=== PATIENT | male | born 1940 | race Caucasian/White ===

== ENCOUNTER 2020-06-24 09:26 | Inpatient (IN) | payer OTHER, BC ==
[2020-06-24] MEDS ORDERED: LACTATED RINGERS SOLUTION 1000 ML INFUS.BAG IV ONE (11:46)
--- NOTE | 2020-06-24 11:46 | PDOC ---
History of Present Illness - General Chief Complaint: Weakness Stated Complaint: GENERALIZED WEAKNESS Time Seen by Provider: 06/24/20 09:38 History Source: Patient - History of Present Illness Initial Comments: 06/24/20 11:41 80M w/no PMH p/w worsening bilateral LE weakness, L > R. 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 He reports a fall from standing yesterday after feeling that his legs "gave out" from under him. He denies any LOC, head, or neck pain. He reports that the home has stairs, and he has had slow, progressive difficulty navigating the staircase which acutely worsened yesterday. He denies any numbness or tingling in the lower extremities. NKDA. Past History - Medical History Allergies/Adverse Reactions: Allergies Allergy/AdvReac Type Severity Reaction Status Date / Time No Known Allergies Allergy Verified 06/24/20 09:34 COPD: No - Psycho-Social/Smoking History Smoking History: Never smoked Have you smoked in the past 12 months: No - Substance Abuse Hx (Audit-C & DAST Scrn) How often the patient has a drink containing alcohol: Never Score: In Men: 4 or > Positive; In Women: 3 or > Positive: 0 Screen Result (Pos requires Nsg. Audit-10AR): Negative In the last yr the pt used illegal drug/Rx for NonMed reason: No Score: Yes response is considered Positive: 0 Screen Result (Positive result requires Nsg. DAST-10): Negative Review of Systems - Review of Systems Able to Perform ROS?: Yes Comments:: 06/24/20 11:43 GENERAL/CONSTITUTIONAL: Weakness. No fever or chills. HEAD, EYES, EARS, NOSE AND THROAT: No change in vision. No ear pain or discharge. No sore throat. CARDIOVASCULAR: No chest pain or shortness of breath RESPIRATORY: No cough, wheezing, or hemoptysis. GASTROINTESTINAL: No nausea, vomiting, diarrhea or constipation. GENITOURINARY: No dysuria, frequency, or change in urination. MUSCULOSKELETAL: No joint or muscle swelling or pain. No neck or back pain. SKIN: No rash NEUROLOGIC: No headache, vertigo, loss of consciousness, or change in strength/sensation. ENDOCRINE: No increased thirst. No abnormal weight change HEMATOLOGIC/LYMPHATIC: No anemia, easy bleeding, or history of blood clots. ALLERGIC/IMMUNOLOGIC: No hives or skin allergy. *Physical Exam - Vital Signs Last Vital Signs Temp Pulse Resp BP Pulse Ox 97.5 F L 82 18 134/72 98 06/24/20 09:34 06/24/20 09:34 06/24/20 09:34 06/24/20 09:34 06/24/20 09:34 - Physical Exam 06/24/20 11:44 GENERAL: Awake, alert, and fully oriented, in no acute distress HEAD: No signs of trauma, normocephalic, atraumatic EYES: PERRLA, EOMI, sclera anicteric, conjunctiva clear ENT: Auricles normal inspection, hearing grossly normal, nares patent, oropharynx clear without exudates. Moist mucosa NECK: Normal ROM, supple, no lymphadenopathy, JVD, or masses LUNGS: No distress, speaks full sentences, clear to auscultation bilaterally HEART: Regular rate and rhythm, normal S1 and S2, no murmurs, rubs or gallops, peripheral pulses normal and equal bilaterally. ABDOMEN: Soft, nontender, normoactive bowel sounds. No guarding, no rebound. No masses EXTREMITIES : Normal inspection, Normal range of motion, no edema. No clubbing or cyanosis NEUROLOGICAL: Normal sensation to light touch of bilateral lower extremities. 5/5 strength in bilateral lower extremities. Cranial nerves II through XII grossly intact. Normal speech, no focal sensorimotor deficits SKIN: Warm, Dry, normal turgor, no rashes or lesions noted Medical Decision Making - Medical Decision Making 06/24/20 11:45 80M w/no PMH p/w acute worsening of progressive LE weakness, L > R, with fall from standing yesterday. He denies any pain at this time, no focal findings on exam. Plan: CBC CMP Mag Phos Cardiac Profile EKG CXR CT Head Dispo: Pending labs, imaging
[2020-06-24 12:07] LABS: HEMATOCRIT 45.9 % (35.4-49); HEMOGLOBIN 15.8 GM/dL (11.7-16.9); LYMPH % 21.8 % (8-40); MCH 31.2 pg (25.7-33.7); MCHC 34.4 g/dl (32.0-35.9); MEAN CELL VOLUME 90.8 fl (80-96); MEAN PLT VOLUME 9.8 fl (7.5-11.1); MONO % 10.8 % (3.8-10.2); NEUT % 65.4 % (42.8-82.8); PLATELET COUNT 242 K/MM3 (134-434); RBC 5.05 M/mm3 (4.00-5.60); RDW 13.6 % (11.9-15.9); WHITE BLOOD COUNT 7.6 K/mm3 (4.0-10.0)
[2020-06-24 12:33] LABS: ALBUMIN 3.6 g/dl (3.4-5.0); ALK PHOS 90 U/L (45-117); ANION GAP 8 MMOL/L (8-16); BILIRUBIN,TOTAL 0.6 mg/dL (0.2-1); BLOOD UREA NITROGEN 17.6 mg/dL (7-18); CALCIUM 9.2 mg/dL (8.5-10.1); CHLORIDE 103 mmol/L (98-107); CO2 26 mmol/L (21-32); CREATININE 0.8 mg/dL (0.55-1.3); GLUCOSE,RANDOM 286 mg/dL (74-106); POTASSIUM 4.3 mmol/L (3.5-5.1); SGOT/AST 15 U/L (15-37); SGPT/ALT 19 U/L (13-61); SODIUM 137 mmol/L (136-145); TOT PROT 6.9 g/dl (6.4-8.2)
[2020-06-24 12:40] LABS: URINE APPEARANCE CLEAR; URINE BILIRUBIN NEGATIVE (NEGATIVE); URINE COLOR YELLOW; URINE GLUCOSE (UA) 3+ (NEGATIVE); URINE KETONE 1+ (NEGATIVE); URINE LEUK ESTERASE NEGATIVE (NEGATIVE); URINE NITRITE NEGATIVE (NEGATIVE); URINE PROTEIN NEGATIVE (NEGATIVE)
--- NOTE | 2020-06-24 13:49 | PDOC ---
Documentation entered by Timmy Baca SCRIBE, acting as scribe for Mayank Galloway MD. Mayank Galloway MD: This documentation has been prepared by the gerriibe, Timmy Baca SCRIBE, under my direction and personally reviewed by me in its entirety. I confirm that the documentation accurately reflects all work, treatment, procedures, and medical decision making performed by me. Attending Attestation - Resident Resident Name: ReyesEverett - ED Attending Attestation I have performed the following: I have examined & evaluated the patient, The case was reviewed & discussed with the resident, I agree w/resident's findings & plan, Exceptions are as noted - HPI HPI: 06/24/20 12:07 The patient is an 80 year old male with no significant past medical history who presents to the emergency department for evaluation of weakness that began a few weeks ago and has been progressively worsening. The patient reports worsening weakness of is L leg. States that several weeks ago he started having difficulty ambulating with his left leg not cooperating. He endorses falling yesterday after his legs gave out due to increased difficulty walking. He denies hitting his head, or having any LOC from the fall yesterday. today he could not get down the stairs as he was afraid he is not fall down. He denies any other focal neurologic complaints including vision changes, focal numbness, tingling, upper extremity weakness, vertigo. pt also endorses having needing to use a cane the past 3 weeks as things have been getting so bad. Denies LOC, head/neck trauma, or paresthesias. The patient denies chest/abdomi nal/back pain, cough, and shortness of breath. Denies fever, chills, nausea, vomiting, and/or any GI symptoms. Denies any symptoms. Denies any other symptoms. Allergies: NKA Surgical Hx: None reported - Physicial Exam PE: 06/24/20 11:30 GENERAL: The patient is awake, alert, and fully oriented, Nontoxic - in no acute distress. HEAD: Normocephalic, atraumatic. EYES: extraocular movements intact, sclera anicteric, conjunctiva clear. ENT: Normal voice, Moist mucous membranes. NECK: Normal range of motion, supple without lymphadenopathy, JVD, or masses. LUNGS: Breath sounds equal, clear to auscultation bilaterally. No wheezes, no crackles, no rales. HEART: Regular rate and rhythm, normal S1 and S2 without murmur, rub or gallop. ABDOMEN: Soft, nontender, normoactive bowel sounds. No guarding, no rebound. No masses. EXTREMITIES: Normal range of motion, no edema. No clubbing or cyanosis. No cords, erythema, or tenderness. NEUROLOGICAL: No facial asymmetry, Normal speech, 5/5 strength in b/l UE and RLE, 4/5 weakness of LLE, sensation intact and symmetric in upper/lower extremities BACK: No focal bony tenderness/eruythema/induration PSYCH: Normal mood, normal affect. SKIN: Warm, Dry, normal turgor, no rashes or lesions noted. - Medical Decision Making 06/24/20 13:43 LLE weakness over past several weeks ?possible cva no back pain/trauma to suggest cauda equina labs reviewed ct pending 06/24/20 17:43 ct head neagtive pt unable to ambulate stably unclear reason for his L leg weakness, will admit for further management Discharge - Discharge Information Problems reviewed: Yes Clinical Impression/Diagnosis: Left leg weakness, Gait instability Condition: Stable Disposition: VNS/HOME HEALTH CARE - Follow up/Referral - Patient Discharge Instructions - Post Discharge Activity
--- NOTE | 2020-06-24 14:03 | EKG ---
Test Reason : Blood Pressure : / mmHG Vent. Rate : 079 BPM Atrial Rate : 079 BPM P-R Int : 234 ms QRS Dur : 076 ms QT Int : 392 ms P-R-T Axes : -16 009 056 degrees QTc Int : 449 ms SINUS RHYTHM WITH 1ST DEGREE A-V BLOCK LOW VOLTAGE QRS INFERIOR INFARCT , AGE UNDETERMINED ABNORMAL ECG NO PREVIOUS ECGS AVAILABLE Confirmed by JUSTYN COOPER MD ([id number]) on 06/24/2020 2:03:29 PM Referred By: Confirmed By:JUSTYN COOPER MD
[2020-06-24 15:58] LABS: MAGNESIUM 2.1 mg/dL (1.8-2.4); PHOSPHOROUS 3.8 mg/dL (2.5-4.9)
--- NOTE | 2020-06-24 17:45 | HP ---
CHIEF COMPLAINT: Bilateral LE weakness, L>R PCP: HISTORY OF PRESENT ILLNESS: Pt is a 80 year old male with no stated PMHx presenting with bilateral LE weakness (L>R) for the past 6 months that has progressively worsened. Over the last 1-2 days, the weakness has increased, and he has had trouble ambulating. He states that he has had to use his R leg more than his L leg due to the increased weakness on the L side. Pt states when he takes turns he loses his balance due to the weakness in his L leg. Pt states he has had several falls during this time as well, but denies LOC, head or neck trauma. Pt states the weakness is mainly in his L mid calf, and this is where it has been since this started 6 months ago. Pt states weakness has not traveled, and has consistently been located in this location. Pt denies any bladder/bowel incontinence. Pt denies any vision changes, dizziness, palpitation. Pt states there is no associated numbness, tingling or pain. Pt also states he has had reddening of his R eye that began 3 days ago. ER course was notable for: (1) EKG NSR, no ischemic changes (2) Head CT negative for acute, chronic changes noted (3) 1L LR in ED PAST MEDICAL HISTORY: Denies PAST SURGICAL HISTORY: Denies Social History: Smoking: Quit 50 years ago Alcohol: Occasionally Drugs: Denies Allergies No Known Allergies Allergy (Verified 06/24/20 09:34) HOME MEDICATIONS: REVIEW OF SYSTEMS CONSTITUTIONAL: Absent: fever, chills, diaphoresis, generalized weakness, malaise, loss of appetite, weight change HEENT: Absent: rhinorrhea, nasal congestion, throat pain, throat swelling, difficulty swallowing, mouth swelling, ear pain, eye pain, visual changes CARDIOVASCULAR: Absent: chest pain, syncope, palpitations, irregular heart rate, lightheadedness, peripheral edema RESPIRATORY: Absent: cough, shortness of breath, dyspnea with exertion, orthopnea, wheezing, stridor, hemoptysis GASTROINTESTINAL: Absent: abdominal pain, abdominal distension, nausea, vomiting, diarrhea, constipation, melena, hematochezia GENITOURINARY: Absent: dysuria, frequency, urgency, hesitancy, hematuria, flank pain, genital pain MUSCULOSKELETAL: Bilateral LE weakness, L>R without any pain, radicular pain, tingling, numbness Absent: myalgia, arthralgia, joint swelling, back pain, neck pain SKIN: Absent: rash, itching, pallor HEMATOLOGIC/IMMUNOLOGIC: Absent: easy bleeding, easy bruising, lymphadenopathy, frequent infections ENDOCRINE: Absent: unexplained weight gain, unexplained weight loss, heat intolerance, cold intolerance NEUROLOGIC: Absent: headache, focal weakness or paresthesias, dizziness, unsteady gait, seizure, mental status changes, bladder or bowel incontinence PSYCHIATRIC: Absent: anxiety, depression, suicidal or homicidal ideation, hallucinations. PHYSICAL EXAMINATION Vital Signs - 24 hr 06/24/20 06/24/20 06/24/20 09:34 11:11 13:50 Temperature 97.5 F L 97.9 F Pulse Rate 82 80 Pulse Rate [ 81 Left Radial] Respiratory 18 18 Rate Blood Pressure 134/72 Blood Pressure 146/79 [Right Arm] O2 Sat by Pulse 98 97 98 Oximetry (%) GENERAL: Awake, alert, and fully oriented, in no acute distress. HEAD: Normal with no signs of trauma. EYES: Pupils equal, round and reactive to light, extraocular movements intact, sclera anicteric, conjunctiva clear. No lid lag. EARS, NOSE, THROAT: Ears normal, nares patent, oropharynx clear without exudates. Moist mucous membranes. NECK: Normal range of motion, supple without lymphadenopathy, JVD, or masses. LUNGS: Breath sounds equal, clear to auscultation bilaterally. No wheezes, and no crackles. No accessory muscle use. HEART: Regular rate and rhythm, normal S1 and S2 without murmur, rub or gallop. ABDOMEN: Soft, nontender, not distended, normoactive bowel sounds, no guarding, no rebound, no masses. No hepatomegaly or splenomegaly. MUSCULOSKELETAL: Normal range of motion at all joints. No bony deformities or tenderness. No CVA tenderness. 5/5 motor strength in RLE, 4/5 motor strength in LLE UPPER EXTREMITIES: 2+ pulses, warm, well-perfused. No cyanosis. No clubbing. No peripheral edema. LOWER EXTREMITIES: 2+ pulses, warm, well-perfused. No calf tenderness. No peripheral edema. NEUROLOGICAL: Cranial nerves II-XII intact. Normal speech. Normal gait. PSYCHIATRIC: Cooperative. Good eye contact. Appropriate mood and affect. SKIN: Warm, dry, normal turgor, no rashes or lesions noted, normal capillary refill. Laboratory Results - last 24 hr 06/24/20 06/24/20 06/24/20 11:00 11:00 11:50 WBC 7.6 RBC 5.05 Hgb 15.8 Hct 45.9 MCV 90.8 MCH 31.2 MCHC 34.4 RDW 13.6 Plt Count 242 MPV 9.8 Absolute Neuts (auto) 5.0 Neutrophils % 65.4 Lymphocytes % 21.8 Monocytes % 10.8 H Eosinophils % 1.0 Basophils % 1.0 Nucleated RBC % 0 Sodium 137 Potassium 4.3 Chloride 103 Carbon Dioxide 26 Anion Gap 8 BUN 17.6 Creatinine 0.8 Est GFR (CKD-EPI)AfAm 97.10 Est GFR (CKD-EPI)NonAf 83.78 Random Glucose 286 H Calcium 9.2 Phosphorus 3.8 Magnesium 2.1 Total Bilirubin 0.6 AST 15 ALT 19 Alkaline Phosphatase 90 Creatine Kinase 67 Troponin I < 0.02 Total Protein 6.9 Albumin 3.6 Vitamin B12 350 Urine Color Yellow Urine Appearance Clear Urine pH 6.0 Ur Specific [place] 1.035 Urine Protein Negative Urine Glucose (UA) 3+ H Urine Ketones 1+ H Urine Blood Negative Urine Nitrite Negative Urine Bilirubin Negative Urine Urobilinogen 1.0 Ur Leukocyte Esterase Negative ASSESSMENT/PLAN: Pt is a 80 year old male with no stated PMHx presenting with bilateral LE weakness, L>R. Head CT (chronic changes noted only), EKG and labs unremarkable in ED. #Lower extremity weakness, L>R -progressive, increased in last few days without migration -no LOC, palpitations, drinks adequate amounts of water and at baseline creatinine -fall precautions -physical therapy requested #Hyperglycemia -Glucose 286 -no hx of DM, A1c ordered #R eye conjunctivitis -polymyxin/TMP in R eye -monitor improvement FEN NS 100cc/hr Monitor electrolytes Regular diet PPx Lovenox 40 mg SQ Dispo Admit to med surg. Family Medical History Family History: Denies Visit type - Medication Review Med list reviewed for High Risk Meds patients 65 and older: Yes - Emergency Visit Emergency Visit: Yes ED Registration Date: 06/24/20 Care time: The patient presented to the Emergency Department on the above date and was hospitalized for further evaluation of their emergent condition. - New Patient This patient is new to me today: No - Critical Care Critical Care patient: No ATTENDING PHYSICIAN STATEMENT I saw and evaluated the patient. I reviewed the resident's note and discussed the case with the resident. I agree with the resident's findings and plan as documented. SUBJECTIVE: OBJECTIVE: ASSESSMENT AND PLAN:
[2020-06-24] MEDS ORDERED: SODIUM CHLORIDE 1,000 ML IV SCH (18:00)
[2020-06-24] MEDS: POLYMYXIN B SULFATE/TMP 10 ML OPHTHALMIC SOLUTION OD SCH ×2 (19:56→22:07)
--- NOTE | 2020-06-25 00:33 | PN ---
Teaching Attending Note Name of Resident: Travon Chun ATTENDING PHYSICIAN STATEMENT I saw and evaluated the patient. I reviewed the resident's note and discussed the case with the resident. I agree with the resident's findings and plan as documented. SUBJECTIVE: Patient seen and examined at bedside, c/o L leg weakness over the past week, denies trauma/falls. VSS. OBJECTIVE: GA comfortable, AAox3 HEENT nC/aT, dry MM, neck supple Chest CTAB, no crackles CVS s1, S2+, RRR Abd Soft, NT, ND, BS+ Ext no LE edema, no calf tenderness, 4/5 strength LLE, sensation intact and equal LE b/l Vital Signs (72 hours) 06/24/20 06/24/20 06/24/20 09:34 11:11 13:50 Temperature 97.5 F L 98.2 F 97.9 F Pulse Rate 82 80 Pulse Rate [ 97 H 81 Left Radial] Respiratory 18 23 H 18 Rate Blood Pressure 134/72 Blood Pressure 165/91 146/79 [Right Arm] O2 Sat by Pulse 98 98 98 Oximetry (%) 06/24/20 23:48 Temperature Pulse Rate Pulse Rate [ 75 Left Radial] Respiratory 18 Rate Blood Pressure Blood Pressure 149/69 [Right Arm] O2 Sat by Pulse 97 Oximetry (%) Laboratory Results - last 24 hr 06/24/20 06/24/20 06/24/20 11:00 11:00 11:50 WBC 7.6 RBC 5.05 Hgb 15.8 Hct 45.9 MCV 90.8 MCH 31.2 MCHC 34.4 RDW 13.6 Plt Count 242 MPV 9.8 Absolute Neuts (auto) 5.0 Neutrophils % 65.4 Lymphocytes % 21.8 Monocytes % 10.8 H Eosinophils % 1.0 Basophils % 1.0 Nucleated RBC % 0 Sodium 137 Potassium 4.3 Chloride 103 Carbon Dioxide 26 Anion Gap 8 BUN 17.6 Creatinine 0.8 Est GFR (CKD-EPI)AfAm 97.10 Est GFR (CKD-EPI)NonAf 83.78 Random Glucose 286 H Calcium 9.2 Phosphorus 3.8 Magnesium 2.1 Total Bilirubin 0.6 AST 15 ALT 19 Alkaline Phosphatase 90 Creatine Kinase 67 Troponin I < 0.02 Total Protein 6.9 Albumin 3.6 Vitamin B12 350 Urine Color Yellow Urine Appearance Clear Urine pH 6.0 Ur Specific [place] 1.035 Urine Protein Negative Urine Glucose (UA) 3+ H Urine Ketones 1+ H Urine Blood Negative Urine Nitrite Negative Urine Bilirubin Negative Urine Urobilinogen 1.0 Ur Leukocyte Esterase Negative Home Medications Medication Instructions Recorded Unobtainable 06/24/20 Current Medications Generic Name Dose Route Start Last Admin Trade Name Keonq PRN Reason Stop Dose Admin Enoxaparin Sodium 40 mg 06/25/20 10:00 Lovenox - SQ DAILY TONY Sodium Chloride 1,000 mls @ 100 mls/hr 06/24/20 18:00 06/24/20 19:07 Normal Saline - IV 06/25/20 03:59 100 mls/hr ASDIR TONY Administration Polymyxin/Trimethoprim Sulfate 1 drop 06/24/20 18:00 06/24/20 22:07 Polytrim Opthalmic Solution - OD 1 drop [id number] TONY Administration ASSESSMENT AND PLAN: 80 M No reported PMHx Progressive LLE weakness Plan: Obtain L spine CT to r/o mass occupying lesion May benefit from EMG study from Neurology Send TSH/A1c/lipid panel/B12/RPR/Aldolase B/CPK levels PT evaluation DVT ppx: Lovenox SC
[2020-06-25] MEDS: POLYMYXIN B SULFATE/TMP 10 ML OPHTHALMIC SOLUTION OD SCH ×5 (05:53→22:33)
[2020-06-25 07:16] LABS: BASO % 1.2 % (0-2.0); EOS % 1.8 % (0-4.5); HEMATOCRIT 42.2 % (35.4-49); HEMOGLOBIN 14.5 GM/dL (11.7-16.9); LYMPH % 23.5 % (8-40); MCH 30.9 pg (25.7-33.7); MCHC 34.5 g/dl (32.0-35.9); MEAN CELL VOLUME 89.6 fl (80-96); MEAN PLT VOLUME 8.6 fl (7.5-11.1); MONO % 9.3 % (3.8-10.2); NEUT % 64.2 % (42.8-82.8); PLATELET COUNT 228 K/MM3 (134-434); RDW 13.4 % (11.9-15.9); WHITE BLOOD COUNT 7.6 K/mm3 (4.0-10.0)
[2020-06-25 07:50] LABS: ALBUMIN 3.2 g/dl (3.4-5.0); BILIRUBIN,TOTAL 1.1 mg/dL (0.2-1); BLOOD UREA NITROGEN 12.3 mg/dL (7-18); CREATININE 0.8 mg/dL (0.55-1.3); MAGNESIUM 1.9 mg/dL (1.8-2.4); POTASSIUM 3.8 mmol/L (3.5-5.1); TOT PROT 6.1 g/dl (6.4-8.2)
[2020-06-25] MEDS: CYANOCOBALAMIN 1,000 MCG TABLET (FP) PO SCH (10:33)
[2020-06-25] MEDS: ENOXAPARIN NA (PORCINE) 40 MG/0.4 ML DISP.SYRIN SQ SCH (10:34)
--- NOTE | 2020-06-25 13:21 | PN ---
Teaching Attending Note Name of Resident: Travon Chun ATTENDING PHYSICIAN STATEMENT I saw and evaluated the patient. I reviewed the resident's note and discussed the case with the resident. I agree with the resident's findings and plan as documented. SUBJECTIVE: Feels well except for progressive LLE weakness and recent falls. No headache/visual disturbance/lightheadedness/limb numbness. No back pain. OBJECTIVE: Afebrile, hemodynamically stable. Last Vital Signs Temp Pulse Resp BP Pulse Ox 98.1 F 75 18 144/81 95 06/25/20 10:06/25/20 10:06/25/20 10:06/25/20 10:06/25/20 10:00 HEENT - Atraumatic, Normocephalic. Heart - S1, S2, RRR Lungs - clear to auscultation Abdomen - Soft, non-tender. Bowel Sounds normal. Extrmities - no edema, no calf tenderness. Neuro - AAO x 3. Power 4/5 LLE (proximal muscle weakness) Laboratory Results - last 24 hr 06/24/20 06/25/20 06/25/20 11:00 06:40 06:40 WBC 7.6 RBC 4.70 Hgb 14.5 Hct 42.2 MCV 89.6 MCH 30.9 MCHC 34.5 RDW 13.4 Plt Count 228 MPV 8.6 D Absolute Neuts (auto) 4.9 Neutrophils % 64.2 Lymphocytes % 23.5 Monocytes % 9.3 Eosinophils % 1.8 Basophils % 1.2 Nucleated RBC % 0 Sodium 137 137 Potassium 4.3 3.8 Chloride 103 104 Carbon Dioxide 26 26 Anion Gap 8 7 L BUN 17.6 12.3 Creatinine 0.8 0.8 Est GFR (CKD-EPI)AfAm 97.10 97.10 Est GFR (CKD-EPI)NonAf 83.78 83.78 Random Glucose 286 H 245 H Hemoglobin A1c % Calcium 9.2 9.0 Phosphorus 3.8 3.0 Magnesium 2.1 1.9 Total Bilirubin 0.6 1.1 H AST 15 11 L ALT 19 15 Alkaline Phosphatase 90 70 Creatine Kinase 67 72 Troponin I < 0.02 Total Protein 6.9 6.1 L Albumin 3.6 3.2 L Vitamin B12 350 TSH 2.53 Syphilis Serology 06/25/20 06/25/20 06:40 06:40 WBC RBC Hgb Hct MCV MCH MCHC RDW Plt Count MPV Absolute Neuts (auto) Neutrophils % Lymphocytes % Monocytes % Eosinophils % Basophils % Nucleated RBC % Sodium Potassium Chloride Carbon Dioxide Anion Gap BUN Creatinine Est GFR (CKD-EPI)AfAm Est GFR (CKD-EPI)NonAf Random Glucose Hemoglobin A1c % 10.2 H Calcium Phosphorus Magnesium Total Bilirubin AST ALT Alkaline Phosphatase Creatine Kinase Troponin I Total Protein Albumin Vitamin B12 TSH Syphilis Serology Non-reactive Current Medications Generic Name Dose Route Start Last Admin Trade Name Fan PRN Reason Stop Dose Admin Cyanocobalamin 1,000 mcg 06/25/20 10:00 06/25/20 10:33 Vitamin B12 - PO 1,000 mcg DAILY TONY Administration Enoxaparin Sodium 40 mg 06/25/20 10:00 06/25/20 10:34 Lovenox - SQ 40 mg DAILY TONY Administration Insulin Aspart 1 vial 06/25/20 16:30 Novolog Vial Sliding Scale - SQ ACHS TONY Protocol Polymyxin/Trimethoprim Sulfate 1 drop 06/24/20 18:00 06/25/20 10:33 Polytrim Opthalmic Solution - OD 1 drop [id number] TONY Administration Home Medications Medication Instructions Recorded Unobtainable 06/24/20 ASSESSMENT/PLAN: 80 year old male with no significant PMH, does not follow with a PCP, presents with worsening LLE weakness over months and recurrent falls. No HI/LOC. CT Head - no acute intracranial findings, chronic changes. 1. LLE weakness/Unsteady Gait, etiology unclear. CT Head - no acute findings. 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 PT 2. Newly diagnosed DM 2, A1c found to be 10.2 Will maintain on Novolog sliding scale. Endocrinology eval for home diabetic regmen, DM 2 education, and follow up. 3. R eye conjunctivitis - started on Abx eye drops. 4. B12 levels borderline, will supplement. DVT Px - Lovenox SQ
--- NOTE | 2020-06-25 14:45 | PN ---
Physical Exam: SUBJECTIVE: Patient seen and examined. LE weakness bilaterally, L>R. Denies visual changes, back pain, numbness/tingling. OBJECTIVE: Vital Signs Period Temp Pulse Resp BP Sys/Mandujano Pulse Ox Last 24 Hr 97.6 F-98.3 F 71-77 18-18 144-152/69-90 93-97 GENERAL: Awake, alert, and fully oriented, in no acute distress. HEAD: Normal with no signs of trauma. EYES: Pupils equal, round and reactive to light, extraocular movements intact, sclera anicteric, conjunctiva clear. No lid lag. EARS, NOSE, THROAT: Ears normal, nares patent, oropharynx clear without exudates. Moist mucous membranes. NECK: Normal range of motion, supple without lymphadenopathy, JVD, or masses. LUNGS: Breath sounds equal, clear to auscultation bilaterally. No wheezes, and no crackles. No accessory muscle use. HEART: Regular rate and rhythm, normal S1 and S2 without murmur, rub or gallop. ABDOMEN: Soft, nontender, not distended, normoactive bowel sounds, no guarding, no rebound, no masses. No hepatomegaly or splenomegaly. MUSCULOSKELETAL: Normal range of motion at all joints. No bony deformities or tenderness. No CVA tenderness. 5/5 motor strength in RLE, 4/5 motor strength in LLE. UPPER EXTREMITIES: 2+ pulses, warm, well-perfused. No cyanosis. No clubbing. No peripheral edema. LOWER EXTREMITIES: 2+ pulses, warm, well-perfused. No calf tenderness. No peripheral edema. NEUROLOGICAL: Cranial nerves II-XII intact. Normal speech. Normal gait. PSYCHIATRIC: Cooperative. Good eye contact. Appropriate mood and affect. SKIN: Warm, dry, normal turgor, no rashes or lesions noted, normal capillary refill. Laboratory Results - last 24 hr 06/24/20 06/25/20 06/25/20 11:00 06:40 06:40 WBC 7.6 RBC 4.70 Hgb 14.5 Hct 42.2 MCV 89.6 MCH 30.9 MCHC 34.5 RDW 13.4 Plt Count 228 MPV 8.6 D Absolute Neuts (auto) 4.9 Neutrophils % 64.2 Lymphocytes % 23.5 Monocytes % 9.3 Eosinophils % 1.8 Basophils % 1.2 Nucleated RBC % 0 Sodium 137 137 Potassium 4.3 3.8 Chloride 103 104 Carbon Dioxide 26 26 Anion Gap 8 7 L BUN 17.6 12.3 Creatinine 0.8 0.8 Est GFR (CKD-EPI)AfAm 97.10 97.10 Est GFR (CKD-EPI)NonAf 83.78 83.78 Random Glucose 286 H 245 H Hemoglobin A1c % Calcium 9.2 9.0 Phosphorus 3.8 3.0 Magnesium 2.1 1.9 Total Bilirubin 0.6 1.1 H AST 15 11 L ALT 19 15 Alkaline Phosphatase 90 70 Creatine Kinase 67 72 Troponin I < 0.02 Total Protein 6.9 6.1 L Albumin 3.6 3.2 L Vitamin B12 350 TSH 2.53 Syphilis Serology 06/25/20 06/25/20 06:40 06:40 WBC RBC Hgb Hct MCV MCH MCHC RDW Plt Count MPV Absolute Neuts (auto) Neutrophils % Lymphocytes % Monocytes % Eosinophils % Basophils % Nucleated RBC % Sodium Potassium Chloride Carbon Dioxide Anion Gap BUN Creatinine Est GFR (CKD-EPI)AfAm Est GFR (CKD-EPI)NonAf Random Glucose Hemoglobin A1c % 10.2 H Calcium Phosphorus Magnesium Total Bilirubin AST ALT Alkaline Phosphatase Creatine Kinase Troponin I Total Protein Albumin Vitamin B12 TSH Syphilis Serology Non-reactive Active Medications Generic Name Dose Route Start Last Admin Trade Name Freq PRN Reason Stop Dose Admin Cyanocobalamin 1,000 mcg 06/25/20 10:00 06/25/20 10:33 Vitamin B12 - PO 1,000 mcg DAILY TONY Administration Enoxaparin Sodium 40 mg 06/25/20 10:00 06/25/20 10:34 Lovenox - SQ 40 mg DAILY TONY Administration Insulin Aspart 1 vial 06/25/20 16:30 Novolog Vial Sliding Scale - SQ ACHS [facility] Protocol Polymyxin/Trimethoprim Sulfate 1 drop 06/24/20 18:00 06/25/20 10:33 Polytrim Opthalmic Solution - OD 1 drop Q4HWA TONY Administration CT head - chronic changes only, no acute changes Lumbar spine CT - severe DJD ASSESSMENT/PLAN: Pt is a 80 year old male with no stated PMHx presenting with bilateral LE weakness, L>R. Head CT (chronic changes noted only), EKG and labs unremarkable in ED. #Lower extremity weakness, L>R -lumbar spine CT: severe DJD -physical therapy #DMT2, newly diagnosed -A1c 10.2 -SSI and BGM -Consulted endocrine #R eye conjunctivitis -polymyxin/TMP in R eye FEN No standing fluids Monitor electrolytes Regular diet PPx Lovenox 40 mg SQ Dispo Admit to med surg. Visit type - Emergency Visit Emergency Visit: Yes ED Registration Date: 06/24/20 Care time: The patient presented to the Emergency Department on the above date and was hospitalized for further evaluation of their emergent condition. - New Patient This patient is new to me today: No - Critical Care Critical Care patient: No - Medication Review Med list reviewed for High Risk Meds patients 65 and older: Yes ATTENDING PHYSICIAN STATEMENT I saw and evaluated the patient. I reviewed the resident's note and discussed the case with the resident. I agree with the resident's findings and plan as documented. SUBJECTIVE: OBJECTIVE: ASSESSMENT AND PLAN:
--- NOTE | 2020-06-25 15:20 | CON.NEURO ---
Consult - Smoking History Smoking history: Never smoked Have you smoked in the past 12 months: No Home Medications - Allergies Allergies/Adverse Reactions: Allergies Allergy/AdvReac Type Severity Reaction Status Date / Time No Known Allergies Allergy Verified 06/24/20 09:34 - Home Medications Home Medications: Ambulatory Orders Unobtainable 06/24/20 Physical Exam-Neuro Vital Signs: Vital Signs Temperature 98.2 F 06/25/20 14:39 Pulse Rate 87 06/25/20 14:39 Respiratory Rate 06/25/20 14:39 Blood Pressure 136/78 06/25/20 14:39 O2 Sat by Pulse Oximetry (%) 96 06/25/20 14:39 Labs: CBC, BMP 06/25/20 06:40 06/25/20 06:40 Assessment/Plan cc fall and leg weakness HPI 80 year old male , no significant medical history. He lives with his . He has been experiencing left leg weakness since beginning of 2019. Patient feels left leg is getting worse. He deneis any dramatic event, there is no d ysphagia, dysarthria, diplopis. There is no cognitive difficulty He denies any back pain, neck pain , or tinging numbness, no bowel or bladder symptoms. ct of L spine is pending, ct head is urnemarkable. Because of this weakness he has stumble and fall. THere is no loc ER course was notable for: (1) EKG NSR, no ischemic changes (2) Head CT negative for acute, chronic changes noted (3) 1L LR in ED PAST MEDICAL HISTORY: Denies PAST SURGICAL HISTORY: Denies Social History: Smoking: Quit 50 years ago Alcohol: Occasionally Drugs: Denies Allergies No Known Allergies Allergy (Verified 06/24/20 09:34) ROS,FH,SH reviewed in chart NEUROLOGICAL EXAMINATION Alert oriented x 3, speech is normal, neck is supple afebrle vss eomi, pupils reactive no face asymmetry moving all ext there is left leg knee extension and dorsiflexion is weakness upto grad e4- no sensory loss reflex are generalized diminished ct head normal Assessment/Plan 80 year old male , no significant medical problem. Complaing of slowly progressive left lower extremity weakness, recently diagnosis with DM. There is no back pain, no neck pain, no sensory symptoms or bowel or bladder symnptoms. THere is left knee extension, left hip flexion and dorsiflexion weakness. 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 - PT - Continue supportive care - ct head is unemarkable - may need rehab, diabetic control Thanking you so much Tito Rivera MD
[2020-06-25] MEDS: INSULIN SLIDING SCALE (NOVOLOG) 1 VIAL SQ SCH ×2 (16:48→22:36)
[2020-06-25] MEDS ORDERED: INSULIN (NOVOLOG) ASPART 100 UNITS/ML 10ML VIAL ONE (21:38)
--- NOTE | 2020-06-26 00:15 | CONSULT ---
Consult Consult Specialty:: Endocrinology Referred by:: Lay Cool Res Reason for Consultation:: DMT2 - History of Present Illness Chief Complaint: weakness and lethargic History of Present Illness: Pt is a 80 year old male with recent dx dmt2,PMHx presenting with bilateral LE weakness (L>R) for the past 6 months that has progressively worsened. Over the last 1-2 days, the weakness has increased, and he has had trouble ambulating. He states his legs getting weak and heavy difficulty walking and having difficulty catching his breath,found to have elevated blood sugars requiring insulin coverage.he denies vision loss,nausea or vomiting. - Smoking History Smoking history: Never smoked Have you smoked in the past 12 months: No Home Medications - Allergies Allergies/Adverse Reactions: Allergies Allergy/AdvReac Type Severity Reaction Status Date / Time No Known Allergies Allergy Verified 06/24/20 09:34 - Home Medications Home Medications: Ambulatory Orders Unobtainable 06/24/20 Review of Systems - Review of Systems Constitutional: reports: Lethargy, Unintentional Wgt. Loss Eyes: reports: Blurred Vision HENT: reports: No Symptoms Neck: reports: No Symptoms Cardiovascular: reports: Edema, Shortness of Breath Respiratory: reports: Exercise Intolerance, SOB, SOB on Exertion Genitourinary: reports: Frequency Breasts: reports: No Symptoms Reported Musculoskeletal: reports: Extremity Pain, Muscle Pain, Muscle Cramps, Muscle Weakness Integumentary: reports: Erythema Neurological: reports: Numbness, Parasthesia, Unsteady Gait, Weakness Endocrine: reports: Unexplained Weight Loss Physical Exam Vital Signs: Vital Signs Temperature 97.6 F 06/25/20 18:53 Pulse Rate 88 06/25/20 18:53 Respiratory Rate 18 06/25/20 18:53 Blood Pressure 140/75 06/25/20 18:53 O2 Sat by Pulse Oximetry (%) 96 06/25/20 18:53 Labs: CBC, BMP 06/25/20 06:40 06/25/20 06:40 Problem List - Problems (1) Controlled diabetes mellitus with hyperglycemia Problems reviewed: Yes Code(s): E11.65 - TYPE 2 DIABETES MELLITUS WITH HYPERGLYCEMIA (2) Controlled diabetes mellitus with hyperglycemia Problems reviewed: Yes Code(s): E11.65 - TYPE 2 DIABETES MELLITUS WITH HYPERGLYCEMIA (3) Gait instability Code(s): R26.81 - UNSTEADINESS ON FEET (4) Left leg weakness Code(s): R29.898 - OT SYMPTOMS AND SIGNS INVOLVING THE MUSCULOSKELETAL SYSTEM Assessment/Plan Current Active Problems diabetes mellitus type 2 new onset Gait instability (Acute) Left leg weakness (Acute) Abnormal Lab Results 06/25/20 06/25/20 06:40 06:40 Anion Gap 7 L Random Glucose 245 H Hemoglobin A1c % 10.2 H Total Bilirubin 1.1 H AST 11 L Total Protein 6.1 L Albumin 3.2 L Laboratory Results - last 24 hr 06/24/20 06/25/20 06/25/20 17:15 06:40 06:40 WBC 7.6 RBC 4.70 Hgb 14.5 Hct 42.2 MCV 89.6 MCH 30.9 MCHC 34.5 RDW 13.4 Plt Count 228 MPV 8.6 D Absolute Neuts (auto) 4.9 Neutrophils % 64.2 Lymphocytes % 23.5 Monocytes % 9.3 Eosinophils % 1.8 Basophils % 1.2 Nucleated RBC % 0 Sodium 137 Potassium 3.8 Chloride 104 Carbon Dioxide 26 Anion Gap 7 L BUN 12.3 Creatinine 0.8 Est GFR (CKD-EPI)AfAm 97.10 Est GFR (CKD-EPI)NonAf 83.78 POC Glucometer Random Glucose 245 H Hemoglobin A1c % Calcium 9.0 Phosphorus 3.0 Magnesium 1.9 Total Bilirubin 1.1 H AST 11 L ALT 15 Alkaline Phosphatase 70 Creatine Kinase 72 Total Protein 6.1 L Albumin 3.2 L TSH 2.53 Syphilis Serology COVID-19 (GUY) Not detected 06/25/20 06/25/20 06/25/20 06:40 06:40 16:38 WBC RBC Hgb Hct MCV MCH MCHC RDW Plt Count MPV Absolute Neuts (auto) Neutrophils % Lymphocytes % Monocytes % Eosinophils % Basophils % Nucleated RBC % Sodium Potassium Chloride Carbon Dioxide Anion Gap BUN Creatinine Est GFR (CKD-EPI)AfAm Est GFR (CKD-EPI)NonAf POC Glucometer 252 Random Glucose Hemoglobin A1c % 10.2 H Calcium Phosphorus Magnesium Total Bilirubin AST ALT Alkaline Phosphatase Creatine Kinase Total Protein Albumin TSH Syphilis Serology Non-reactive COVID-19 (GUY) 06/25/20 22:35 WBC RBC Hgb Hct MCV MCH MCHC RDW Plt Count MPV Absolute Neuts (auto) Neutrophils % Lymphocytes % Monocytes % Eosinophils % Basophils % Nucleated RBC % Sodium Potassium Chloride Carbon Dioxide Anion Gap BUN Creatinine Est GFR (CKD-EPI)AfAm Est GFR (CKD-EPI)NonAf POC Glucometer 247 Random Glucose Hemoglobin A1c % Calcium Phosphorus Magnesium Total Bilirubin AST ALT Alkaline Phosphatase Creatine Kinase Total Protein Albumin TSH Syphilis Serology COVID-19 (GUY) plan: bgm qidnovolg scale will need metformin 500mg bid januvia 100mg/day start levemir 7units q am may be able to use sglt2 or dpp4 as outpatient
[2020-06-26] MEDS: metFORMIN HCL 500 MG TABLET (FP) PO SCH ×2 (06:27→18:30)
[2020-06-26] MEDS: INSULIN (LEVEMIR) 100 UNITS/ML UNITS SQ SCH (06:27)
[2020-06-26] MEDS: INSULIN SLIDING SCALE (NOVOLOG) 1 VIAL SQ SCH ×4 (06:29→22:42)
[2020-06-26] MEDS: POLYMYXIN B SULFATE/TMP 10 ML OPHTHALMIC SOLUTION OD SCH ×5 (06:30→22:43)
[2020-06-26] MEDS ORDERED: INSULIN (LEVEMIR) 100 UNITS/ML UNITS SQ SCH (07:00)
[2020-06-26 07:53] LABS: BLOOD UREA NITROGEN 16.1 mg/dL (7-18); CALCIUM 9.1 mg/dL (8.5-10.1); CREATININE 0.8 mg/dL (0.55-1.3); PHOSPHOROUS 3.3 mg/dL (2.5-4.9); POTASSIUM 3.8 mmol/L (3.5-5.1)
[2020-06-26 07:54] LABS: HEMATOCRIT 42.7 % (35.4-49); HEMOGLOBIN 14.8 GM/dL (11.7-16.9); MCH 30.8 pg (25.7-33.7); MCHC 34.6 g/dl (32.0-35.9); MEAN CELL VOLUME 89.1 fl (80-96); MEAN PLT VOLUME 8.7 fl (7.5-11.1); PLATELET COUNT 232 K/MM3 (134-434); RBC 4.79 M/mm3 (4.00-5.60); RDW 13.3 % (11.9-15.9); WHITE BLOOD COUNT 7.3 K/mm3 (4.0-10.0)
[2020-06-26] MEDS: CYANOCOBALAMIN 1,000 MCG TABLET (FP) PO SCH (10:14)
[2020-06-26] MEDS: ENOXAPARIN NA (PORCINE) 40 MG/0.4 ML DISP.SYRIN SQ SCH (10:14)
[2020-06-26] MEDS ORDERED: INSULIN (NOVOLOG) ASPART 100 UNITS/ML 10ML VIAL ONE (12:38)
--- NOTE | 2020-06-26 15:39 | PN ---
Teaching Attending Note Name of Resident: Pamela Barajas ATTENDING PHYSICIAN STATEMENT I saw and evaluated the patient. I reviewed the resident's note and discussed the case with the resident. I agree with the resident's findings and plan as documented. SUBJECTIVE: Feels well except for progressive LLE weakness and recent falls. No headache/visual disturbance/lightheadedness/limb numbness. No back pain. OBJECTIVE: Afebrile, hemodynamically stable. Last Vital Signs Temp Pulse Resp BP Pulse Ox 97.7 F 81 18 130/77 98 06/26/20 13:30 06/26/20 13:30 06/26/20 13:30 06/26/20 13:30 06/26/20 10:20 Heart - S1, S2, RRR Lungs - clear to auscultation Abdomen - Soft, non-tender. Bowel Sounds normal. Extrmities - no edema, no calf tenderness. Neuro - AAO x 3. Power 4/5 LLE (proximal muscle weakness) Laboratory Results - last 24 hr 06/24/20 06/25/20 06/25/20 17:15 16:38 22:35 WBC RBC Hgb Hct MCV MCH MCHC RDW Plt Count MPV Sodium Potassium Chloride Carbon Dioxide Anion Gap BUN Creatinine Est GFR (CKD-EPI)AfAm Est GFR (CKD-EPI)NonAf POC Glucometer 252 247 Random Glucose Calcium Phosphorus Magnesium COVID-19 (GUY) Not detected 06/26/20 06/26/20 06/26/20 06:24 07:00 07:00 WBC 7.3 RBC 4.79 Hgb 14.8 Hct 42.7 MCV 89.1 MCH 30.8 MCHC 34.6 RDW 13.3 Plt Count 232 MPV 8.7 Sodium 136 Potassium 3.8 Chloride 105 Carbon Dioxide 24 Anion Gap 8 BUN 16.1 Creatinine 0.8 Est GFR (CKD-EPI)AfAm 97.10 Est GFR (CKD-EPI)NonAf 83.78 POC Glucometer 214 Random Glucose 215 H Calcium 9.1 Phosphorus 3.3 Magnesium 2.0 COVID-19 (GUY) 06/26/20 12:17 WBC RBC Hgb Hct MCV MCH MCHC RDW Plt Count MPV Sodium Potassium Chloride Carbon Dioxide Anion Gap BUN Creatinine Est GFR (CKD-EPI)AfAm Est GFR (CKD-EPI)NonAf POC Glucometer 244 Random Glucose Calcium Phosphorus Magnesium COVID-19 (GUY) Current Medications Generic Name Dose Route Start Last Admin Trade Name Fan PRN Reason Stop Dose Admin Cyanocobalamin 1,000 mcg 06/25/20 10:00 06/26/20 10:14 Vitamin B12 - PO 1,000 mcg DAILY TONY Administration Enoxaparin Sodium 40 mg 06/25/20 10:00 06/26/20 10:14 Lovenox - SQ 40 mg DAILY TONY Administration Insulin Aspart 1 vial 06/26/20 00:32 06/26/20 06:29 Novolog Vial Sliding Scale - SQ 3 units ACHS TONY Administration Protocol Insulin Detemir 7 units 06/26/20 07:00 06/26/20 06:27 Levemir Vial SQ 7 units AM TONY Administration Metformin HCl 500 mg 06/26/20 07:00 06/26/20 06:27 Glucophage - PO 500 mg BID@0700,1630 TONY Administration Polymyxin/Trimethoprim Sulfate 1 drop 06/24/20 18:00 06/26/20 10:14 Polytrim Opthalmic Solution - OD 1 drop Q4HWA TONY Administration Sitagliptin Phosphate 100 mg 06/26/20 07:00 06/26/20 06:27 Januvia - PO 100 mg DAILY@0700 TONY Administration Home Medications Medication Instructions Recorded Unobtainable 06/24/20 ASSESSMENT/PLAN: 80 year old male with no significant PMH, does not follow with a PCP, presents with worsening LLE weakness over months and recurrent falls. No HI/LOC. CT Head - no acute intracranial findings, chronic changes. 1. LLE weakness/Unsteady Gait, etiology unclear. CT Head - no acute findings. CT LS Spine - Severe DJD, no cord compression, awaiting official read Neurology evaluated and recommended MRI C/T/L Spine - patient only able to tolerated C Spine (showed DJD with disc herniation C5/6, no compression) Refusing further MRI studies. Neurology for further guidance regarding appropriate imaging. PT - walked only 20 feet, will re-assess. 2. Newly diagnosed DM 2, A1c found to be 10.2 Endocrinology evaluated - recommend initiating on Metformin, Januvia, and Levemir 7 unit qAM 3. R eye conjunctivitis - Continue Abx eye drops. 4. B12 levels borderline, will supplement. DVT Px - Lovenox SQ Need to get med list and reconcile
[2020-06-26 15:43] VITALS: BMI 25.6
--- NOTE | 2020-06-26 16:29 | PN ---
Physical Exam: SUBJECTIVE: Patient seen and examined at bedside. Patient still reports LLE weakness. Walked 20ft with PT. Unable to complete MRI, and refuses any further MRI studies. OBJECTIVE: Vital Signs Temperature 97.7 F 06/26/20 13:30 Pulse Rate 81 06/26/20 13:30 Respiratory Rate 18 06/26/20 13:30 Blood Pressure 130/77 06/26/20 13:30 O2 Sat by Pulse Oximetry (%) 98 06/26/20 10:20 GENERAL: The patient is awake, alert, and fully oriented, in no acute distress. NECK: supple. LUNGS: Breath sounds equal, clear to auscultation bilaterally HEART: Regular rate and rhythm, S1, S2 ABDOMEN: Soft, nontender, nondistended, normoactive bowel sounds EXTREMITIES: 2+ pulses, warm, well-perfused, no edema. NEUROLOGICAL: AAOx3. Normal speech. motor strength 4/5 LLE, 5/5 LLE, sensation intact PSYCH: Normal mood, normal affect. SKIN: Warm, dry, normal turgor Laboratory Results - last 24 hr 06/24/20 06/25/20 06/25/20 17:15 16:38 22:35 WBC RBC Hgb Hct MCV MCH MCHC RDW Plt Count MPV Sodium Potassium Chloride Carbon Dioxide Anion Gap BUN Creatinine Est GFR (CKD-EPI)AfAm Est GFR (CKD-EPI)NonAf POC Glucometer 252 247 Random Glucose Calcium Phosphorus Magnesium COVID-19 (GUY) Not detected 06/26/20 06/26/20 06/26/20 06:24 07:00 07:00 WBC 7.3 RBC 4.79 Hgb 14.8 Hct 42.7 MCV 89.1 MCH 30.8 MCHC 34.6 RDW 13.3 Plt Count 232 MPV 8.7 Sodium 136 Potassium 3.8 Chloride 105 Carbon Dioxide 24 Anion Gap 8 BUN 16.1 Creatinine 0.8 Est GFR (CKD-EPI)AfAm 97.10 Est GFR (CKD-EPI)NonAf 83.78 POC Glucometer 214 Random Glucose 215 H Calcium 9.1 Phosphorus 3.3 Magnesium 2.0 COVID-19 (GUY) 06/26/20 12:17 WBC RBC Hgb Hct MCV MCH MCHC RDW Plt Count MPV Sodium Potassium Chloride Carbon Dioxide Anion Gap BUN Creatinine Est GFR (CKD-EPI)AfAm Est GFR (CKD-EPI)NonAf POC Glucometer 244 Random Glucose Calcium Phosphorus Magnesium COVID-19 (GUY) Active Medications Generic Name Dose Route Start Last Admin Trade Name Fan PRN Reason Stop Dose Admin Cyanocobalamin 1,000 mcg 06/25/20 10:00 06/26/20 10:14 Vitamin B12 - PO 1,000 mcg DAILY TONY Administration Enoxaparin Sodium 40 mg 06/25/20 10:00 06/26/20 10:14 Lovenox - SQ 40 mg DAILY TONY Administration Insulin Aspart 1 vial 06/26/20 00:32 06/26/20 06:29 Novolog Vial Sliding Scale - SQ 3 units ACHS TONY Administration Protocol Insulin Detemir 7 units 06/26/20 07:00 06/26/20 06:27 Levemir Vial SQ 7 units AM TONY Administration Metformin HCl 500 mg 06/26/20 07:00 06/26/20 06:27 Glucophage - PO 500 mg BID@0700,1630 TONY Administration Polymyxin/Trimethoprim Sulfate 1 drop 06/24/20 18:00 06/26/20 10:14 Polytrim Opthalmic Solution - OD 1 drop Q4HWA TONY Administration Sitagliptin Phosphate 100 mg 06/26/20 07:00 06/26/20 06:27 Januvia - PO 100 mg DAILY@0700 TONY Administration ASSESSMENT/PLAN: Patient is an 80 year old male with no stated PMHx presenting with bilateral LE weakness, L>R. Head CT (chronic changes noted only), EKG and labs unremarkable in ED. #LLE weakness/unsteady gait -CT head - no acute intracranial findings -lumbar spine CT: severe DJD, await final read -Cervical MRI: no evidence of cord compression. Small midline C5-6 herniation without cord compression. -patient unable to tolerate MRI, study incomplete, and patient refuses any further MRI studies -awaiting further recommendations regarding appropriate imaging from neurology (Dr. Rivera) -physical therapy #DM type 2, newly diagnosed -A1c 10.2 -SSI and BGM ACHS -Consulted endocrine (Dr. Hong). Recs appreciated. -Levemir 7u AM and continue ISS -Metformin 500mg bid, Januvia 100mg daily. -to follow up in clinic for further management. #R eye conjunctivitis -polymyxin/TMP in R eye #FEN -No standing fluids -Monitor electrolytes -Regular diet PPx -Lovenox 40 mg SQ Dispo -Admit to med surg. Visit type - Emergency Visit Emergency Visit: Yes ED Registration Date: 06/24/20 Care time: The patient presented to the Emergency Department on the above date and was hospitalized for further evaluation of their emergent condition. - New Patient This patient is new to me today: Yes Date on this admission: 06/26/20 - Critical Care Critical Care patient: No - Medication Review Med list reviewed for High Risk Meds patients 65 and older: Yes ATTENDING PHYSICIAN STATEMENT I saw and evaluated the patient. I reviewed the resident's note and discussed the case with the resident. I agree with the resident's findings and plan as documented. SUBJECTIVE: OBJECTIVE: ASSESSMENT AND PLAN:
[2020-06-27] MEDS: metFORMIN HCL 500 MG TABLET (FP) PO SCH ×2 (06:45→16:28)
[2020-06-27] MEDS: INSULIN (LEVEMIR) 100 UNITS/ML UNITS SQ SCH (06:45)
[2020-06-27] MEDS: INSULIN SLIDING SCALE (NOVOLOG) 1 VIAL SQ SCH ×4 (06:47→21:24)
[2020-06-27] MEDS: POLYMYXIN B SULFATE/TMP 10 ML OPHTHALMIC SOLUTION OD SCH ×5 (06:51→21:31)
[2020-06-27] MEDS: ENOXAPARIN NA (PORCINE) 40 MG/0.4 ML DISP.SYRIN SQ SCH (09:58)
[2020-06-27] MEDS: CYANOCOBALAMIN 1,000 MCG TABLET (FP) PO SCH (09:58)
--- NOTE | 2020-06-27 14:47 | PN ---
Progress Note (short form) - Note Progress Note: SUBJECTIVE: Feels well except for LLE weakness, nsteady gait and recent falls. No headache/visual disturbance/lightheadedness/limb numbness. No back pain. OBJECTIVE: Afebrile, hemodynamically stable. Last Vital Signs Temp Pulse Resp BP Pulse Ox 98.6 F 94 H 18 108/89 94 L 06/27/20 14:44 06/27/20 14:44 06/27/20 14:44 06/27/20 14:44 06/27/20 06:00 Heart - S1, S2, RRR Lungs - clear to auscultation Abdomen - Soft, non-tender. Bowel Sounds normal. Extrmities - no edema, no calf tenderness. Neuro - AAO x 3. Power 4/5 LLE (proximal muscle weakness) Laboratory Results - last 24 hr 06/26/20 06/26/20 06/27/20 17:58 22:40 06:40 POC Glucometer 185 153 163 06/27/20 11:45 POC Glucometer 176 Current Medications Generic Name Dose Route Start Last Admin Trade Name Fan PRN Reason Stop Dose Admin Cyanocobalamin 1,000 mcg 06/25/20 10:00 06/27/20 09:58 Vitamin B12 - PO 1,000 mcg DAILY TONY Administration Enoxaparin Sodium 40 mg 06/25/20 10:00 06/27/20 09:58 Lovenox - SQ 40 mg DAILY TONY Administration Insulin Aspart 1 vial 06/26/20 00:32 06/27/20 12:07 Novolog Vial Sliding Scale - SQ 2 units ACHS TONY Administration Protocol Insulin Detemir 7 units 06/26/20 07:00 06/27/20 06:45 Levemir Vial SQ 7 units AM TONY Administration Metformin HCl 500 mg 06/26/20 07:00 06/27/20 06:45 Glucophage - PO 500 mg BID@0700,1630 TONY Administration Polymyxin/Trimethoprim Sulfate 1 drop 06/24/20 18:00 06/27/20 14:14 Polytrim Opthalmic Solution - OD 1 drop Q4HWA TONY Administration Sitagliptin Phosphate 100 mg 06/26/20 07:00 06/27/20 06:45 Januvia - PO 100 mg DAILY@0700 TONY Administration No Home Medications ASSESSMENT/PLAN: 80 year old male with no significant PMH, does not follow with a PCP, presents with worsening LLE weakness over months and recurrent falls. No HI/LOC. CT Head - no acute intracranial findings, chronic changes. 1. LLE weakness/Unsteady Gait, etiology unclear. CT Head - no acute findings. CT LS Spine - Severe DJD, no cord compression, awaiting official read Neurology evaluated and recommended MRI C/T/L Spine - patient only able to tolerated C Spine (showed DJD with small disc herniation C5/6, no compression) Refusing further MRI studies. Neurology for further guidance regarding appropriate imaging. PT - walked only 40 feet, will need re-assessment and likely Rehab. 2. Newly diagnosed DM 2, A1c found to be 10.2 Endocrinology evaluated - recommend initiating on Metformin, Januvia, and Levemir 7 unit qAM 3. R eye conjunctivitis - Continue Abx eye drops. 4. B12 levels borderline, will supplement. DVT Px - Lovenox SQ Visit type - Emergency Visit Emergency Visit: Yes ED Registration Date: 06/24/20 Care time: The patient presented to the Emergency Department on the above date and was hospitalized for further evaluation of their emergent condition. - New Patient This patient is new to me today: No - Critical Care Critical Care patient: No - Discharge Referral Referred to [facility] Med [facility] No - Medication Review Med list reviewed for High Risk Meds patients 65 and older: Yes
[2020-06-27] MEDS ORDERED: INSULIN (NOVOLOG) ASPART 100 UNITS/ML 10ML VIAL ONE (21:14)
--- NOTE | 2020-06-28 00:59 | PN ---
Progress Note (short form) - Note Progress Note: sugars improved yet insulin may be difficult task oral agents seem to work Laboratory Results - last 24 hr 06/27/20 06/27/20 06/27/20 06:40 11:45 17:01 POC Glucometer 163 176 195 06/27/20 21:22 POC Glucometer 177 Current Active Problems Controlled diabetes mellitus with hyperglycemia (Acute) Controlled diabetes mellitus with hyperglycemia (Acute) Gait instability (Acute) Left leg weakness (Acute) plan: januvia 100mg metformin 500mg bid add glimiperide 2mg daily dc levemir Problem List - Problems (1) Controlled diabetes mellitus with hyperglycemia Code(s): E11.65 - TYPE 2 DIABETES MELLITUS WITH HYPERGLYCEMIA (2) Controlled diabetes mellitus with hyperglycemia Code(s): E11.65 - TYPE 2 DIABETES MELLITUS WITH HYPERGLYCEMIA (3) Gait instability Code(s): R26.81 - UNSTEADINESS ON FEET (4) Left leg weakness Code(s): R29.898 - OTH SYMPTOMS AND SIGNS INVOLVING THE MUSCULOSKELETAL SYSTEM
[2020-06-28] MEDS: INSULIN SLIDING SCALE (NOVOLOG) 1 VIAL SQ SCH ×2 (06:56→10:34)
[2020-06-28] MEDS: metFORMIN HCL 500 MG TABLET (FP) PO SCH (06:56)
[2020-06-28] MEDS: POLYMYXIN B SULFATE/TMP 10 ML OPHTHALMIC SOLUTION OD SCH ×3 (06:57→15:44)
[2020-06-28] MEDS ORDERED: GLIMEPIRIDE 2 MG TABLET PO SCH (07:00)
[2020-06-28] MEDS: ENOXAPARIN NA (PORCINE) 40 MG/0.4 ML DISP.SYRIN SQ SCH (09:32)
[2020-06-28] MEDS: CYANOCOBALAMIN 1,000 MCG TABLET (FP) PO SCH (09:33)
--- NOTE | 2020-06-28 10:03 | PN ---
Progress Note (short form) - Note Progress Note: HPI 80 year old male , no significant medical history. He lives with his . He has been experiencing left leg weakness since beginning of 2019. Patient feels left leg is getting worse. He deneis any dramatic event, there is no dysphagia, dysarthria, diplopis. There is no cognitive difficulty He denies any back pain, neck pain , or tinging numbness, no bowel or bladder symptoms. ct of L spine is pending, ct head is urnemarkable. Because of this weakness he has stumble and fall. THere is no loc -- feeling better, able to walk with pt for 40 feet, pateint mri of c spine is normal, he could not tolerate any more mri, and wishes to go home. patient has ct of l spine , which was unreamrkable as per resident, no new complain NEUROLOGICAL EXAMINATION Alert oriented x 3, speech is normal, neck is supple afebrle vss eomi, pupils reactive no face asymmetry moving all ext there is left leg knee extension and dorsiflexion is weakness upto grad e4- no sensory loss reflex are generalized diminished ct head normal Assessment/Plan 80 year old male , no significant medical problem. Complaing of slowly progressive left lower extremity weakness, recently diagnosis with DM. There is no back pain, no neck pain, no sensory symptoms or bowel or bladder symnptoms. THere is left knee extension, left hip flexion and dorsiflexion weakness. 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 Unlikley to be stroke or cord compression his symptoms are improving, could not tolerate mri and wishes to go home Plan- rest of work up can be done as outpatient - pt Thanking you so much Tito Rivear MD
[2020-06-28 13:36] VITALS: BP 117/72; PULSE 87; TEMP 98.2
--- NOTE | 2020-06-28 15:00 | PN ---
Teaching Attending Note Name of Resident: Travon Chun ATTENDING PHYSICIAN STATEMENT I saw and evaluated the patient. I reviewed the resident's note and discussed the case with the resident. I agree with the resident's findings and plan as documented. SUBJECTIVE: Feels well except for LLE weakness which is improving. No headache/visual disturbance/lightheadedness/limb numbness. No back pain. OBJECTIVE: Afebrile, hemodynamically stable. Last Vital Signs Temp Pulse Resp BP Pulse Ox 98.2 F 87 20 117/72 95 06/28/20 13:35 06/28/20 13:35 06/28/20 13:35 06/28/20 13:35 06/28/20 09:59 Heart - S1, S2, RRR Lungs - clear to auscultation Abdomen - Soft, non-tender. Bowel Sounds normal. Extrmities - no edema, no calf tenderness. Neuro - AAO x 3. Power 4/5 LLE (proximal muscle weakness, improved since admission) Laboratory Results - last 24 hr 06/27/20 06/27/20 06/28/20 17:01 21:22 06:55 POC Glucometer 195 177 154 06/28/20 10:33 POC Glucometer 153 Current Medications Generic Name Dose Route Start Last Admin Trade Name Freq PRN Reason Stop Dose Admin Cyanocobalamin 1,000 mcg 06/25/20 10:00 06/28/20 09:33 Vitamin B12 - PO 1,000 mcg DAILY TONY Administration Enoxaparin Sodium 40 mg 06/25/20 10:00 06/28/20 09:32 Lovenox - SQ 40 mg DAILY TONY Administration Glimepiride 2 mg 06/28/20 07:00 06/28/20 06:56 Amaryl - PO 2 mg DAILY@0700 TONY Administration Insulin Aspart 1 vial 06/26/20 00:32 06/28/20 10:34 Novolog Vial Sliding Scale - SQ 2 units ACHS TONY Administration Protocol Metformin HCl 500 mg 06/26/20 07:00 06/28/20 06:56 Glucophage - PO 500 mg BID@0700,1630 TONY Administration Polymyxin/Trimethoprim Sulfate 1 drop 06/24/20 18:00 06/28/20 09:32 Polytrim Opthalmic Solution - OD 1 drop Q4HWA TONY Administration Sitagliptin Phosphate 100 mg 06/26/20 07:00 06/28/20 06:56 Januvia - PO 100 mg DAILY@0700 [facility] Administration Home Medications Medication Instructions Recorded Cyanocobalamin [Vitamin B12 -] 1,000 mcg PO DAILY #30 tablet 06/28/20 Glimepiride [Amaryl -] 2 mg PO DAILY@0700 #30 tablet 06/28/20 Sitagliptin Phosphate [Januvia -] 100 mg PO DAILY@0700 #30 ud 06/28/20 metFORMIN HCL [Glucophage -] 500 mg PO BID@0700,1630 #60 tablet 06/28/20 ASSESSMENT/PLAN: 80 year old male with no significant PMH, does not follow with a PCP, presents with worsening LLE weakness over months and recurrent falls. No HI/LOC. CT Head - no acute intracranial findings, chronic changes. 1. LLE weakness/Unsteady Gait, posisbly sec to LS plexopathy/lumbar radiculopathy CT Head - no acute findings. CT LS Spine - Severe DJD, no cord compression, awaiting official read Neurology evaluated and recommended MRI C/T/L Spine - patient only able to tole rated C Spine (showed DJD with small disc herniation C5/6, no compression) Refusing further MRI studies - can have open MRI as out-patient, cleared for discharge by Neurology. Neurology for further guidance regarding appropriate imaging as out-patient. Medically and Neurologically Stable for discharge home with VNS/PT. 2. Newly diagnosed DM 2, A1c found to be 10.2 Endocrinology evaluated - recommend Metformin, Januvia, and Glimepiride. Endocrinology follow up on discharge. 3. R eye conjunctivitis - Continue Abx eye drops. 4. B12 levels borderline, will supplement. Medically optimized for discharge home with walker, cleared by PT. Neurologically Stable as per Neurology.
--- NOTE | 2020-06-28 15:12 | DS ---
Physical Exam: SUBJECTIVE: Patient seen and examined. Improving strength in LLE. Participated in PT. OBJECTIVE: Vital Signs Period Temp Pulse Resp BP Sys/Mandujano Pulse Ox Last 24 Hr 98.2 F-98.7 F 71-100 18-20 102-141/67-83 94-96 PHYSICAL EXAM GENERAL: The patient is awake, alert, and fully oriented, in no acute distress. HEAD: Normal with no signs of trauma. EYES: PERRL, extraocular movements intact, sclera anicteric, conjunctiva clear. ENT: Ears normal, nares patent, oropharynx clear without exudates, moist mucous membranes. NECK: Trachea midline, full range of motion, supple. LUNGS: Breath sounds equal, clear to auscultation bilaterally, no wheezes, no crackles, no accessory muscle use. HEART: Regular rate and rhythm, S1, S2 without murmur, rub or gallop. ABDOMEN: Soft, nontender, nondistended, normoactive bowel sounds, no guarding, no rebound, no hepatosplenomegaly, no masses. EXTREMITIES: 2+ pulses, warm, well-perfused, no edema. NEUROLOGICAL: Cranial nerves II through XII grossly intact. Normal speech, gait not observed. PSYCH: Normal mood, normal affect. SKIN: Warm, dry, normal turgor, no rashes or lesions noted. LABS Laboratory Results - last 24 hr 06/27/20 06/27/20 06/28/20 17:01 21:22 06:55 POC Glucometer 195 177 154 06/28/20 10:33 POC Glucometer 153 HOSPITAL COURSE: Date of Admission:06/24/20 Date of Discharge: 06/28/20 Minutes to complete discharge: 36 Discharge Summary Problems reviewed: Yes Reason For Visit: WEAKNESS Current Active Problems Controlled diabetes mellitus with hyperglycemia (Acute) Controlled diabetes mellitus with hyperglycemia (Acute) Gait instability (Acute) Left leg weakness (Acute) Condition: Stable - Instructions Diet, Activity, Other Instructions: You came into the hospital because of leg weakness that has been going on for several months, but has worsened recently with multiple falls. You had a CT scan of your spine which showed degeneration of your spine in the lumbar region which can occur as you age. You were also seen by the neurologist, and an MRI done of your cervical spine which showed a small disc bulge. You were going to have your MRI of the thoracic and lumbar spine, however you were unable to complete this. You can complete these when you follow up with your neurologist. You had physical therapy done to help strengthen your legs. Physical therapy will visit you at your home to continue your rehabilitation. You were found to have very high blood sugar. We did an Hemoglobin A1C, which showed how your blood sugars have been over the last few months. They were elevated at 10.2, which means you are now diagnosed with diabetes mellitus type 2. You were given insulin in the hospital for your elevated blood sugar, and started on new medications. You were seen by the pipe jeeper to help with your diabetes management. Please START metformin 500mg twice a day. Please START Januvia 100mg once a day. Please START Glimiperide 2mg once a day. Please START Cyanocobalmin (B12) 1,000mcg once a day. You will also need to use a glucometer to measure your blood glucose levels. Please follow up with your primary care physician, Dr. Streeter, in 1 week for your overall health management. Please follow up with your pipe jeeper, Dr. Hong, in 1 week to help manage your diabetes. Please follow up with your neurologist, Dr. Rivera, in 2 weeks to re-evaluate your progression in your leg weakness. If you have any new, worsening or changing symptoms please return to the ED or call 911. Referrals: Tito Rivera MD [Staff Physician] - Corey Hong MD [Staff Physician] - Bernard Streeter MD [Staff Physician] - Disposition: VNS/HOME HEALTH CARE - Home Medications Comprehensive Discharge Medication List: Ambulatory Orders Cyanocobalamin [Vitamin B12 -] 1,000 mcg PO DAILY #30 tablet 06/28/20 Glimepiride [Amaryl -] 2 mg PO DAILY@0700 #30 tablet 06/28/20 Sitagliptin Phosphate [Januvia -] 100 mg PO DAILY@0700 #30 ud 06/28/20 metFORMIN HCL [Glucophage -] 500 mg PO BID@0700,1630 #60 tablet 06/28/20 This patient is new to me today: No Emergency Visit: Yes ED Registration Date: 06/24/20 Care time: The patient presented to the Emergency Department on the above date and was hospitalized for further evaluation of their emergent condition. Critical Care patient: No - Discharge Referral Referred to [facility] No ATTENDING PHYSICIAN STATEMENT I saw and evaluated the patient. I reviewed the resident's note and discussed the case with the resident. I agree with the resident's findings and plan as documented. SUBJECTIVE: OBJECTIVE: ASSESSMENT AND PLAN:
== END 2020-06-28 16:58 | disposition home health service (06) | DRG 74 ==
LOC: JER 09:26 → JERBED 16:38 → J7W 06-25 00:27
DX: E11.40 Type 2 diabetes mellitus with diabetic neuropathy, unspecified (principal); H10.31 Unspecified acute conjunctivitis, right eye; R26.81 Unsteadiness on feet; M47.897 Other spondylosis, lumbosacral region; G54.1 Lumbosacral plexus disorders; E11.65 Type 2 diabetes mellitus with hyperglycemia; R26.2 Difficulty in walking, not elsewhere classified; M54.16 Radiculopathy, lumbar region; R29.898 Other symptoms and signs involving the musculoskeletal system; M50.222 Other cervical disc displacement at C5-C6 level
CPT/HCPCS: 36415; 70450-TC; 72131-TC; 72141-TC; 80048; 80053; 81003; 82085; 82550; 82607; 82962; 83036; 83735; 84100; 84443; 84484; 85025; 85027; 86780; 93005; 93010; 93971-TC; 97116-GP; 97161-GP; 99285-25; U0003